=== PATIENT | male | born 1985 | race Caucasian/White ===

== ENCOUNTER 2019-04-16 06:57 | Emergency (ER) | payer BC, OTHER ==
[2019-04-16] MEDS ORDERED: Acetaminophen TAB* 325 MG PO ONE (07:08)
[2019-04-16] MEDS ORDERED: Ibuprofen TAB* 600 MG PO ONE (07:08)
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
[2019-04-16] MEDS ORDERED: Lidocaine 1% MPF ** 5 ML VIAL INJ ONE ×2 (07:40→07:57)
[2019-04-16 08:41] VITALS: BP 176/97
== END 2019-04-16 08:15 | disposition home or self-care (01) ==
LOC: ED 06:57
DX: S61.012A Laceration without foreign body of left thumb without damage to nail, initial encounter (principal); Y35.021A Legal intervention involving injury by handgun, law enforcement official injured, initial encounter; Y92.89 Other specified places as the place of occurrence of the external cause; Z88.2 Allergy status to sulfonamides
CPT/HCPCS: 12001; 99282; A9270-GY